=== PATIENT | female | born 1965 | race Caucasian/White ===

== ENCOUNTER 2020-07-17 09:33 | Outpatient (CLI) | payer BC, SELFPAY | END 2020-07-17 09:34 | disposition home or self-care (01) | LOC: ANHCOVIDVC 09:33 | PROVIDERS: PCP Internal Medicine | DX: Z23 Encounter for immunization (principal) | CPT/HCPCS: 0001A; 91300 ==

== ENCOUNTER 2020-08-07 09:32 | Outpatient (CLI) | payer BC, SELFPAY | END 2020-08-07 09:33 | LOC: ANHCOVIDVC 09:32 | PROVIDERS: PCP Internal Medicine | DX: Z23 Encounter for immunization (principal) | CPT/HCPCS: 0002A; 91300 ==

== ENCOUNTER → 2021-04-15 11:33 | Outpatient (CLI) | payer OTHER, SELFPAY ==
[2021-04-15 20:22] LABS: SARS-CoV-2 RNA PCR Negative
== END ==
PROVIDERS: PCP Internal Medicine; Visit Provider Internal Medicine
DX: Z20.822 Contact with and (suspected) exposure to COVID-19 (principal)
CPT/HCPCS: C9803; U0003; U0005